=== PATIENT | female | born 1950 | race Caucasian/White ===

== ENCOUNTER 2020-12-15 09:20 | Outpatient (CLI) | payer MEDICARE, MEDICAID | END 2020-12-15 23:59 | disposition home or self-care (01) | LOC: RAD 09:20 | PROVIDERS: ATTEND Psychiatry & Neurology Neurology | DX: R41.3 Other amnesia (principal); R09.02 Hypoxemia; R53.83 Other fatigue | CPT/HCPCS: 95816 ==